=== PATIENT | female | born 1945 | race Caucasian/White ===

== ENCOUNTER → 2018-07-28 | Outpatient (CLI) | payer MEDICARE, OTHER ==
--- NOTE | 2018-07-28 12:06 | KCIC ---
EXAM: Dual energy x-ray absorptiometry (DEXA). HISTORY: Postmenopausal female presents for osteoporosis screening. COMPARISON: 07/28/2013. TECHNIQUE: Dual energy x-ray absorptiometry of the lumbar spine and left hip was performed. Calculation of bone mineral density based on standard deviations above or below the expected young adult normal value (T-score) was completed. FINDINGS: The average bone mineral density in the 1st through 4th lumbar vertebrae is 1.351 g/cmxcm, corresponding with a T-score of 2.8. There has been a 13.1 percent increase in density of the lumbar spine compared to the prior study. The average total bone mineral density in the left hip is 1.077 g/cmxcm, corresponding with a T-score of 1.1. There has been a 3.4 percent increase in density of the left hip compared to the prior study. IMPRESSION: Normal bone mineral density. Note: Definitions established by the World Health Organization: 1. Normal: T-score is -1.0 or above. 2. Osteopenia: T-score is between -1.0 and -2.5 . 3. Osteoporosis: T-score is -2.5 or below. Electronically signed by: Joan Jamil MD (07/28/2018 12:02 PM) [id number]
--- NOTE | 2018-07-28 17:04 | KCIC ---
Bilateral digital screening mammograms: Reason for examination: Routine screening. Comparison is made to previous studies dated 10/21/2014 and 07/28/2013. Interpretation was made with the benefit of CAD. The skin and nipples show no abnormalities. No abnormal axillary lymph nodes are seen. The breast parenchyma shows scattered fibroglandular density. (Breast density: Category B.) There are 2 small nodular parenchymal densities seen posterior in the right breast on the cc view which are probably located at the 10:00 C and 3:00 C positions. Further evaluation with coned compression views and ultrasound is recommended. There continue to be small nodular densities anteriorly in the right breast which appear to be smaller. There are no other new dominant masses, suspicious calcifications or architectural distortions. Impression: Small nodular densities in the right breast posteriorly seen best on cc view and probably located at the 10:00 and 3:00 positions. Recommend further evaluation with coned compression views and ultrasound. BI-RADS Category 0: Incomplete. Needs additional imaging evaluation. "Our facility is accredited by the [employer] Mammography [employer]." This patient's information has been entered into a reminder system for the patient to be notified with the results of her examination and a target date for the next mammogram. Electronically signed by: Kailey Machuca MD (07/28/2018 5:01 PM) [id number]
== END | disposition home or self-care (01) ==
LOC: KCIC MAMMO 10:17
PROVIDERS: ATTEND Family Medicine
DX: Z12.31 Encounter for screening mammogram for malignant neoplasm of breast (principal); R92.8 Other abnormal and inconclusive findings on diagnostic imaging of breast; Z78.0 Asymptomatic menopausal state
CPT/HCPCS: 77067; 77080

== ENCOUNTER → 2018-08-12 | Outpatient (CLI) | payer MEDICARE, OTHER ==
--- NOTE | 2018-08-12 14:18 | KCIC ---
Right breast diagnostic digital mammograms: Reason for examination: Nodules on screening mammogram. Comparison is made to previous study dated 07/28/2018. Coned compression views were obtained in CC and oblique projections. With these additional views, small circumscribed nodules persist at the 3:00 and 10:00 positions. Further evaluation with ultrasound will follow. IMPRESSION: Small nodular densities persist at the 3:00 and 10:00 positions posteriorly in the right breast. Ultrasound to follow. BI-RADS Category 0: Incomplete. Needs additional imaging evaluation. Right breast ultrasound: Right whole breast ultrasound including evaluation of all 4 quadrants and the retroareolar and axillary regions of the right breast was performed. In the 3:00 position 6.5 cm from the nipple, there is a 5 x 4.4 mm hypoechoic fibrocystic type nodule. In the 10:00 position 11.5 cm from the nipple, there is a 9.7 x 8.5 mm intramammary lymph node with benign appearance. No other cystic or solid lesions are seen. No abnormal appearing lymph nodes are seen in the axilla. IMPRESSION: Small fibrocystic lesion at the 3:00 position. Small intramammary lymph node at the 10:00 position. Recommend 6 month follow-up with ultrasound. BI-RADS Category 3: Probably Benign. "Our facility is accredited by the [employer] Mammography Program." This patient's information has been entered into a reminder system for the patient to be notified with the results of her examination and a target date for the next mammogram. Electronically signed by: Kailey Machuca MD (08/12/2018 2:15 PM) [id number]
== END | disposition home or self-care (01) ==
LOC: KCIC MAMMO 09:43
PROVIDERS: ATTEND Family Medicine
DX: R92.8 Other abnormal and inconclusive findings on diagnostic imaging of breast (principal)
CPT/HCPCS: 76641; 77065